=== PATIENT | male | born 1965 | race Two or more races ===

== ENCOUNTER 2024-11-26 11:46 | Inpatient (IN) | payer BC, MEDICAID, OTHER ==
[~2024-11-26] VITALS: Ht 170.2 cm; Wt 103.2 kg
--- NOTE | 2024-11-26 12:27 | ED.PDOC ---
History of Present Illness HPI Comments 59-year-old male presents with a chief complaint of abdominal pain and flank pain. Patient states that he self catheterizes and is frequently acquiring UTIs. Patient mentions that his pain is localized to his left flank, radiating to his LUQ, and rates his pain a 5/10 a this time. Patient also reports that he started to have nausea and vomiting episodes. Chief Complaint: Abdominal Pain Time Seen by MD: 11:59 Reviewed Notes: Medications, Allergies Allergies: Coded Allergies: NO KNOWN ALLERGIES (Unverified , 11/26/24) Information Source: Patient Mode of Arrival: Ambulatory Severity: Moderate Timing: Days Duration: Since onset Prehospital treatment: None Past Medical History PAST MEDICAL HISTORY: DM, HTN Surgical History: Appendectomy Family History Family History: Reviewed,noncontributory to illness Social History Smoker: Non-Smoker Alcohol: Denies ETOH Use Drugs: Denies Drug Use Lives In: Home Constitutional: denies: chills, diaphoresis, fatigue, fever, malaise, sweats, weakness, others EENTM: denies: blurred vision, double vision, ear bleeding, ear discharge, ear drainage, ear pain, ear ringing, eye pain, eye redness, hearing loss, mouth pain, mouth swelling, nasal discharge, nose bleeding, nose congestion, nose pain, photophobia, tearing, throat pain, throat swelling, voice changes, others Respiratory: denies: cough, hemoptysis, orthopnea, SOB at rest, shortness of breath, SOB with excertion, stridor, wheezing, others Cardiovascular: denies: chest pain, dizzy spells, diaphoresis, Dyspnea on exertion, edema, irregular heart beat, left arm pain, lightheadedness, palpitat ions, PND, syncope, others Gastrointestinal: reports: abdominal pain, nausea, vomiting; denies: abdomen distended, blood streaked bowels, constipated, diarrhea, dysphagia, difficulty swallowing, hematemesis, melena, poor appetite, poor fluid intake, rectal bleeding, rectal pain, others Genitourinary: reports: flank pain; denies: burning, dysuria, frequency, hematuria, incontinence, penile discharge, penile sore, pain, testicle pain, testicle swelling, urgency, others Neurological: denies: dizziness, fainting, headache, left sided numbness, left sided weakness, numbness, paresthesia, pre-existing deficit, right sided numbness, right sided weakness, seizure, speech problems, tingling, tremors, weakness, others Musculoskeletal: denies: back pain, gout, joint pain, joint swelling, muscle pain, muscle stiffness, neck pain, others Integumetry: denies: bruises, change in color, change in hair/nails, dryness, laceration, lesions, lumps, rash, wounds, others Allergic/Immunocompromised: denies: Difficulty Healing, Frequent Infections, Hives, Itching, others Hematologic/Lymphatic: denies: anemia, blood clots, easy bleeding, easy bruising, swollen glands, others Endocrine: denies: excessive hunger, excessive sweating, excessive thirst, excessive urination, flushing, intolerance to cold, intolerance to heat, unexplained weight gain, unexplained weight loss, others Psychiatric: denies: anxiety, bipolar disorder, depression, hopeless, panic disorder, schizophrenia, sleepless, suicidal, others All Other Systems: Reviewed and Negative Physical Exam General Appearance: Moderate Distress, Normal HEENT: Normal ENT Inspection, Pharynx Normal, TMs Normal Neck: Full Range of Motion, Non-Tender, Normal, Normal Inspection Respiratory: Chest Non-Tender, Lungs Clear, No Accessory Muscle Use, No Respiratory Distress, Normal Breath Sounds Cardiovascular: No Edema, No JVD, No Murmur, No Gallop, Normal Peripheral Pulses, Regular Rate/Rhythm Breast Exam: Deferred Gastrointestinal: Diffuse, No Organomegaly, No Pulsatile Mass, Normal Bowel Sounds, Soft Genitalia: Deferred Pelvic: Deferred Rectal: Deferred Extremities: No calf tenderness, Normal capillary refill, Normal inspection, Normal range of motion, Non-tender, No pedal edema Musculoskeletal : Apperance: Normal Neurologic: Alert, liquified natural gas specialist II-XII nml as Tested, No Motor Deficits, Normal Affect, Normal Mood, No Sensory Deficits Cerebellar Function: Normal Reflexes: Normal Skin: Dry, Normal Color, Warm Peripheral Pulses: 3+ Radial (R), 3+ Radial (L) Lymphatic: No Adenopathy Was a procedure done? Was a procedure done?: No Differential Dx Considerations may include: Colitis Electrolyte imbalance X-Ray, Labs, Meds, VS Vital Signs Date Time Temp Pulse Resp B/P (MAP) Pulse Ox O2 Delivery O2 Flow Rate FiO2 11/26/24 11:55 99.6 106 12 152/94 (113) 96 99.6 Lab Test 11/26/24 12:09 Range/Units Urine Color Pending Urine Clarity Pending Urine pH Pending Urine Specific [place] Pending Urine Protein Pending Urine Ketones Pending Urine Blood Pending Urine Nitrite Pending Urine Bilirubin Pending Urine Urobilinogen Pending Urine Leukocyte Esterase Pending Urine RBC Pending Urine Microscopic WBC Pending Urine Squamous Epithelial Cells Pending Urine Bacteria Pending Urine Glucose Pending Patient alert. Complaining of abdominal pain. Possible colitis pain Vitals stable. Answering questions. Mild fever. Possible pyelonephritis. Establish intravenous access. Was given fluids. Was given Zosyn. Was given Flagyl. Explained to the patient. Continue monitoring. Time of 1ST Reevaluation: 12:29 Reevaluation 1ST: Unchanged Patient Education/Counseling: Diagnosis, Treatment, Prognosis Family Education/Counseling: No Family Present SEPSIS Sepsis Screen Date sepsis recognized/suspect: Nov 26, 2024 Time Sepsis recognized/suspect: 1154 Recent Procedure: No On Antibiotic Therapy: No Respiratory Rate >20: No Heart Rate >90: No Temp<36 C (96.8 F) or >38.3 C: No SBP <90 or MAP <65 mmHG: No New Acute Mental Status Change: No Is the patient on CPAP, BIPAP,: No Physician Orders Complete Blood Count (11/26/24 12:22) Urinalysis (11/26/24 12:22) Basic Metabolic Panel (11/26/24 12:22) Vital Signs Date Time Temp Pulse Resp B/P (MAP) Pulse Ox O2 Delivery O2 Flow Rate FiO2 11/26/24 11:55 99.6 106 12 152/94 (113) 96 99.6 Departure 1 Departure Time of Disposition: 12:33 Impression: Primary Impression: Acute abdominal pain Additional Impression: Non-specific colitis Disposition: ADMITTED INPATIENT Admit to: Med Surg Condition: Guarded Critical Care Note Critical Care Time?: No Stability Stability form required: No Heart Score Heart Score: Heart Score Response (Comments) Value History N/A 0 EKG N/A 0 Age N/A 0 Risk Factors N/A 0 Troponin N/A 0 Total 0 I personally scribed for IZZY ESPINO MD ([email or web address]) on 11/26/24 at 12:27. Electronically submitted by Trell Mcguire ([email or web address]). IZZY ESPINO MD Nov 26, 2024 12:27
[2024-11-26 12:41] LABS: Urine Protein, UAD 1+ (Negative); Urine WBC Clumps PRESENT /hpf (None Seen)
[2024-11-26 12:49] LABS: Chloride 100 mmol/L (98-107); Hematocrit 48.9 % (41.0-53.0); Hemoglobin 16.5 g/dL (13.5-17.5); Mean Corpuscular Hemoglobin 30.4 pg (28.0-32.0); Mean Corpuscular Volume 90.1 fL (80.0-100.0); Nucleated Red Blood Cells % 0.0 %; Potassium 4.7 mmol/L (3.5-5.1); Sodium 138 mmol/L (136-145)
[2024-11-26 12:50] LABS: Anion Gap 10 (5-15); Carbon Dioxide 28 mmol/L (20-31)
[2024-11-26 12:51] LABS: Calcium 9.5 mg/dL (8.7-10.4)
[2024-11-26 12:55] LABS: BUN/Creatinine Ratio 15.0 (10.0-20.0); Blood Urea Nitrogen 16 mg/dL (9-23)
[2024-11-26 13:00] LABS: Glucose 314 mg/dL (74-106)
[2024-11-26 13:20] VITALS: PULSE 114; RESP 16; O2SAT 97
[2024-11-26] MEDS: PIPERACILLIN-TAZOB 3.375GM 100 ML IV ONE (13:39)
[2024-11-26] MEDS: ONDANSETRON HCL 4 MG/2 ML VIAL IV ONE (13:39)
[2024-11-26] MEDS: MORPHINE SULFATE INJ 2 MG/ml SYRG IV ONE (13:40)
[2024-11-26] MEDS: SODIUM CHLORIDE 0.9% 1,000 ML IV ONE ×2 (13:41→14:00)
--- NOTE | 2024-11-26 19:02 | DVHHP2 ---
Admitting Diagnosis: Abdominal pain History of Present Illness 59-year-old male presents with a chief complaint of abdominal pain and flank pain. Patient states that he self catheterizes and is frequently acquiring UTIs. Patient mentions that his pain is localized to his left flank, radiating to his LUQ, and rates his pain a 5/10 a this time. Patient also reports that he started to have nausea and vomiting episodes. PAST MEDICAL HISTORY: DM, HTN Surgical History: Appendectomy Family History Family History: Reviewed,noncontributory to illness Social History Smoker: Non-Smoker Alcohol: Denies ETOH Use Drugs: Denies Drug Use Lives In: Home Allergies: Coded Allergies: NO KNOWN ALLERGIES (Unverified , 11/26/24) Vital Signs Vital Signs Date Time Temp Pulse Resp B/P (MAP) Pulse Ox O2 Delivery O2 Flow Rate FiO2 11/26/24 16:00 102 16 162/87 (112) 100 11/26/24 13:33 98.3 98.3 11/26/24 13:20 Room Air* 0 21 Physical Exam General-59 years old male, well nourished well developed. Mild distress HEENT-atraumatic normocephalic Heart-regular rate and rhythm Lungs clear to auscultate bilaterally Soft nontender nondistended nondistended Musculoskeletal-no edema cyanosis Neuro AO x3, no focal deficits Results Labs Test 11/26/24 13:18 11/26/24 12:34 11/26/24 12:09 Range/Units POC Glucose 280 H 70-106 mg/dl White Blood Count 9.7 4.4-10.8 10^3/uL Red Blood Count 5.42 4.5-5.90 10^6/uL Hemoglobin 16.5 13.5-17.5 g/dL Hematocrit 48.9 41.0-53.0 % Mean Corpuscular Volume 90.1 80.0-100.0 fL Mean Corpuscular Hemoglobin 30.4 28.0-32.0 pg Mean Corpuscular Hemoglobin Concent 33.7 32.0-36.0 g/dL Red Cell Distribution Width 13.6 11.8-14.3 % Platelet Count 251 140-450 10^3/uL Mean Platelet Volume 9.3 6.9-10.8 fL Neutrophils (%) (Auto) 79.4 37.0-80.0 % Lymphocytes (%) (Auto) 12.7 10.0-50.0 % Monocytes (%) (Auto) 7.2 0.0-12.0 % Eosinophils (%) (Auto) 0.1 0.0-7.0 % Basophils (%) (Auto) 0.6 0.0-2.0 % Neutrophils # (Auto) 7.7 1.6-8.6 10 ^3/uL Lymphocytes # (Auto) 1.2 0.4-5.4 10 ^3/uL Monocytes # (Auto) 0.7 0-1.3 10 ^3/uL Eosinophils # (Auto) 0 0-0.8 10 ^3/uL Basophils # (Auto) 0.1 0-0.2 10 ^3/uL Nucleated Red Blood Cells 0.0 % Sodium Level 138 136-145 mmol/L Potassium Level 4.7 3.5-5.1 mmol/L Chloride Level 100 98-107 mmol/L Carbon Dioxide Level 28 20-31 mmol/L Anion Gap 10 5-15 Blood Urea Nitrogen 16 9-23 mg/dL Creatinine 1.07 0.700-1.30 mg/dL Glomerular Filtration Rate Calc 80 >90 mL/min BUN/Creatinine Ratio 15.0 10.0-20.0 Serum Glucose 314 H 74-106 mg/dL Calcium Level 9.5 8.7-10.4 mg/dL Urine Color Light-orange Yellow Urine Clarity Turbid H Clear Urine pH 5.5 5.0-9.0 Urine Specific [place] 1.024 1.001-1.035 Urine Protein 1+ H Negative Urine Ketones 2+ H Negative Urine Blood 2+ H Negative /uL Urine Nitrite 1+ H Negative Urine Bilirubin Negative Negative Urine Urobilinogen Normal Negative mg/dL Urine Leukocyte Esterase 3+ Negative /uL Urine RBC 30 0 - 3 /hpf Urine WBC Clumps Present None Seen /hpf Urine Microscopic WBC 482 H 0-3 /HPF Urine Squamous Epithelial Cells None seen <5 /hpf Urine Bacteria Many H None Seen /hpf Urine Mucus Few None Seen Urine Glucose 4+ H Normal mg/dL Primary Diagnosis Acute urinary tract infection Plan +UA. asked for ct to r/o renal stones, pyelo, intra-abdominal infection. pt refused ct scan and requests to be treated for uti. Ceftriaxone 1 g q.day Follow up urine culture IV fluids Pain control Resume home meds Full code Lovenox for DVT prophylaxis No GI prophylaxis needed Plan discussed with: Patient Problems List: (1) Urinary tract infection (2) Acute abdominal pain Status: Acute Date of Service: Nov 26, 2024 Billing Provider: SHANTA RDZ MD Common Visit Codes: [id number] INP/OBS CARE (MOD) SHANTA RDZ MD Nov 26, 2024 19:02
[2024-11-26] MEDS ORDERED: DEXTROSE (50%) 50ML SYRG IV PRN (19:15)
[2024-11-26] MEDS ORDERED: ONDANSETRON HCL 4 MG/2 ML VIAL IV PRN (19:15)
[2024-11-26] MEDS ORDERED: DOCUSATE SOD 100 MG CAP PO PRN (19:15)
[2024-11-26] MEDS ORDERED: hydrALAZINE HCL 20 MG/ML VL IV PRN (19:15)
[2024-11-26] MEDS: LACTATED RINGER'S 1,000 ML IV ONE (20:43)
[2024-11-26] MEDS: ACETAMINOPHEN 325 MG TAB PO PRN (21:06)
[2024-11-26 21:35] VITALS: PULSE 111; RESP 23; O2SAT 95
[2024-11-26] MEDS: SODIUM CHLOR 0.9% PF (SALINE LOCK) 10ML VIAL/SYR IV SCH (21:46)
[2024-11-26] MEDS: ACCU-CHEK COMFORT CURVE STRIP VI SCH (21:46)
[2024-11-26] MEDS: InsuLIN REG 1unit/0.01ml Soln (100units/ml) SC SCH (21:49)
[2024-11-27 01:00] VITALS: BP 127/78; PULSE 101; RESP 21; TEMP 99.9; O2SAT 95
[2024-11-27] MEDS ORDERED: AML5T GT (02:22)
[2024-11-27] MEDS ORDERED: INSLANTI SC (02:22)
[2024-11-27] MEDS ORDERED: FLUO-125 PO (02:24)
[2024-11-27] MEDS ORDERED: LOSA-535 PO (02:25)
[2024-11-27] MEDS ORDERED: METO-158 PO (02:26)
[2024-11-27] MEDS ORDERED: ROSU20TA14 PO (02:27)
[2024-11-27 05:00] VITALS: BP 153/97; PULSE 101; RESP 21; TEMP 98.4; O2SAT 94
[2024-11-27 08:27] LABS: Hematocrit 45.0 % (41.0-53.0); Hemoglobin 15.2 g/dL (13.5-17.5); Mean Corpuscular Hemoglobin 30.2 pg (28.0-32.0); Mean Corpuscular Volume 89.5 fL (80.0-100.0); Nucleated Red Blood Cells % 0.1 %
[2024-11-27 08:47] LABS: Alanine Aminotransferase 13 U/L (7-40); Alkaline Phosphatase 80 U/L (46-116); Anion Gap 9 (5-15); BUN/Creatinine Ratio 10.4 (10.0-20.0); Blood Urea Nitrogen 10 mg/dL (9-23); Calcium 9.2 mg/dL (8.7-10.4); Carbon Dioxide 27 mmol/L (20-31); Chloride 101 mmol/L (98-107); Sodium 137 mmol/L (136-145); Total Protein 7.2 g/dL (5.7-8.2)
[2024-11-27 08:48] LABS: Albumin 4.2 g/dL (3.2-4.8); Bilirubin, Total 0.5 mg/dL (0.2-1.0)
[2024-11-27 08:50] LABS: Glucose 254 mg/dL (74-106); Potassium 3.5 mmol/L (3.5-5.1)
[2024-11-27 09:39] VITALS: BP 143/89; PULSE 108; RESP 17; TEMP 101; O2SAT 93
[2024-11-27] MEDS: ENOXAPARIN SOD 40 MG/0.4 ML SYRINGE SC SCH (10:00)
[2024-11-27] MEDS: cefTRIAXone 1GM/50ML D5W 50 ML IV SCH (10:43)
--- NOTE | 2024-11-27 10:54 | DVHPN2 ---
Reviewed: Care Plan, H&P, Labs, Medications, Previous Orders, Radiology Changes from previous H/P or p: No Changes General: Per HPI Objective Vitals Vital Signs Date Time Temp Pulse Resp B/P (MAP) Pulse Ox O2 Delivery O2 Flow Rate FiO2 11/27/24 09:39 101.0 108 17 143/89 (107) 93 101.0 11/27/24 01:10 Room Air* 0 21 Intake/Output Intake and Output 11/27/24 07:00 Intake Total 1650 ml Balance 1650 ml Intake Oral 0 ml IV Total 1650 ml Medications Current Medications Medications Dose Ordered Sig/Sherrie Route Start Time Stop Time Status Last Admin Dose Admin Ceftriaxone Sodium 50 ml @ 100 mls/hr DAILY IV 11/27/24 10:00 Sodium Chloride 10 ml Q8HR IV 11/26/24 22:00 11/27/24 06:23 10 ML Docusate Sodium 100 mg BIDPRN PRN PO 11/26/24 19:15 Acetaminophen 650 mg Q6HP PRN PO 11/26/24 19:15 11/27/24 07:59 650 MG Acetaminophen/ Hydrocodone Bitart 1 tab Q4HP PRN PO 11/26/24 19:15 Ondansetron HCl 4 mg Q4HP PRN IV 11/26/24 19:15 Enoxaparin Sodium 40 mg DAILY SC 11/27/24 10:00 Diagnostic Test (Pha) 1 strip ACHS 11/26/24 22:00 11/27/24 06:30 1 STRIP Insulin Human Regular ACHS SC 11/26/24 22:00 11/27/24 06:30 6 UNITS Dextrose 50 ml UD PRN IV 11/26/24 19:15 Hydralazine HCl 10 mg Q6HP PRN IV 11/26/24 19:15 Laboratory Results Laboratory Tests 11/27/24 08:06 Chemistry Test 11/26/24 12:34 11/27/24 08:06 Calcium Level 9.5 mg/dL (8.7-10.4) 9.2 mg/dL (8.7-10.4) Albumin 4.2 g/dL (3.2-4.8) Total Protein 7.2 g/dL (5.7-8.2) LFT Test 11/27/24 08:06 Alanine Aminotransferase (ALT) 13 U/L (7-40) Alkaline Phosphatase 80 U/L (46-116) Aspartate Amino Transferase (AST) 17 U/L (13-40) Total Bilirubin 0.5 mg/dL (0.2-1.0) Urinalysis Test 11/26/24 12:09 Urine Color Light-orange (Yellow) Urine Clarity Turbid (Clear) H Urine pH 5.5 (5.0-9.0) Urine Specific [place] 1.024 (1.001-1.035) Urine Protein 1+ (Negative) H Urine Ketones 2+ (Negative) H Urine Blood 2+ /uL (Negative) H Urine Nitrite 1+ (Negative) H Urine Bilirubin Negative (Negative) Urine Urobilinogen Normal mg/dL (Negative) Urine Leukocyte Esterase 3+ /uL (Negative) Urine RBC 30 /hpf (0 - 3) Urine WBC Clumps Present /hpf (None Seen) Urine Microscopic WBC 482 /HPF (0-3) H Urine Squamous Epithelial Cells None seen /hpf (<5) Urine Bacteria Many /hpf (None Seen) H Urine Mucus Few (None Seen) Urine Glucose 4+ mg/dL (Normal) H Microbiology Microbiology Date/Time Source Procedure Growth Status 11/26/24 12:09 Voided Urine Urine Culture - Preliminary Resulted Labs and/or images reviewed: Labs reviewed by me, Image(s) reviewed by me Assessment/Plan Assessment/Plan 59-year-old male presents with a chief complaint of abdominal pain and flank pain. Patient states that he self catheterizes and is frequently acquiring UTIs. Patient mentions that his pain is localized to his left flank, radiating to his LUQ, and rates his pain a 5/10 a this time. Patient also reports that he started to have nausea and vomiting episodes. PAST MEDICAL HISTORY: DM, HTN Surgical History: Appendectomy Family History Family History: Reviewed,noncontributory to illness Social History Smoker: Non-Smoker Alcohol: Denies ETOH Use Drugs: Denies Drug Use Lives In: Home Acute urinary tract infection Acute abdominal pain 11/27/2024: Continue with IV antibiotics. This is complicated UTI. Awaiting for urine culture and sensitivity. Change diet to diabetic diet and adding insulin scale Plan discussed with: Patient Date of Service: Nov 27, 2024 Billing Provider: CARL FLOYD DO Common Visit Codes: [id number] INP/OBS CARE(HIGH) CARL FLOYD DO Nov 27, 2024 10:54
[2024-11-27 13:00] VITALS: BP 123/78; PULSE 94; RESP 17; TEMP 98; O2SAT 93
[2024-11-27] MEDS ORDERED: DEXTROSE (50%) 50ML SYRG IV PRN (13:15)
[2024-11-27 16:40] VITALS: BP 135/90; PULSE 101; RESP 17; TEMP 100.5; O2SAT 94
[2024-11-27] MEDS: InsuLIN REG 1unit/0.01ml Soln (100units/ml) SC SCH (17:27)
[2024-11-27] MEDS: ACCU-CHEK COMFORT CURVE STRIP VI SCH (17:28)
[2024-11-27] MEDS: HYDROcodone-ACET 5/325MG TAB PO PRN (20:46)
[2024-11-27 21:00] VITALS: BP 128/75; PULSE 96; RESP 20; TEMP 99.7; O2SAT 93
[2024-11-28] VITALS (7 sets, daily range): BP systolic 126–151; BP diastolic 77–94; PULSE 80–94; RESP 14–19; TEMP 97.6–99.4; O2SAT 94–96
[2024-11-28 06:57] LABS: Alanine Aminotransferase 15 U/L (7-40); Albumin 4.0 g/dL (3.2-4.8); Alkaline Phosphatase 82 U/L (46-116); Anion Gap 10 (5-15); BUN/Creatinine Ratio 13.6 (10.0-20.0); Bilirubin, Total 0.3 mg/dL (0.2-1.0); Blood Urea Nitrogen 12 mg/dL (9-23); Calcium 8.5 mg/dL (8.7-10.4); Carbon Dioxide 26 mmol/L (20-31); Chloride 100 mmol/L (98-107); Glucose 225 mg/dL (74-106); Potassium 3.5 mmol/L (3.5-5.1); Sodium 136 mmol/L (136-145); Total Protein 7.1 g/dL (5.7-8.2)
[2024-11-28 06:59] LABS: Hematocrit 43.8 % (41.0-53.0); Hemoglobin 14.9 g/dL (13.5-17.5); Mean Corpuscular Hemoglobin 30.5 pg (28.0-32.0); Mean Corpuscular Volume 89.5 fL (80.0-100.0); Nucleated Red Blood Cells % 0.1 %
--- NOTE | 2024-11-28 13:16 | DVHPN2 ---
Reviewed: Care Plan, H&P, Labs, Medications, Previous Orders, Radiology Changes from previous H/P or p: No Changes General: Per HPI Objective Vitals Vital Signs Date Time Temp Pulse Resp B/P (MAP) Pulse Ox O2 Delivery O2 Flow Rate FiO2 11/28/24 12:45 98.1 87 16 126/78 (94) 96 98.1 11/28/24 08:00 Room Air* 0 21 Intake/Output Intake and Output 11/28/24 07:00 Intake Total 950 ml Balance 950 ml Intake Oral 900 ml IV Total 50 ml # Voids 4 # Bowel Movements 1 Medications Current Medications Medications Dose Ordered Sig/Sherrie Route Start Time Stop Time Status Last Admin Dose Admin Ceftriaxone Sodium 50 ml @ 100 mls/hr DAILY IV 11/27/24 10:00 11/28/24 10:29 100 MLS/HR Sodium Chloride 10 ml Q8HR IV 11/26/24 22:00 11/28/24 12:35 10 ML Docusate Sodium 100 mg BIDPRN PRN PO 11/26/24 19:15 Acetaminophen 650 mg Q6HP PRN PO 11/26/24 19:15 11/27/24 17:30 650 MG Acetaminophen/ Hydrocodone Bitart 1 tab Q4HP PRN PO 11/26/24 19:15 11/28/24 05:58 1 TAB Ondansetron HCl 4 mg Q4HP PRN IV 11/26/24 19:15 Enoxaparin Sodium 40 mg DAILY SC 11/27/24 10:00 Dextrose 50 ml UD PRN IV 11/26/24 19:15 Cancel Hydralazine HCl 10 mg Q6HP PRN IV 11/26/24 19:15 Diagnostic Test (Pha) 1 strip Q6HR 11/27/24 18:00 11/28/24 12:35 1 STRIP Insulin Human Regular Q6HR SC 11/27/24 18:00 11/28/24 12:35 12 UNITS Dextrose 50 ml UD PRN IV 11/27/24 13:15 Laboratory Results Laboratory Tests 11/28/24 05:40 Chemistry Test 11/28/24 05:40 Albumin 4.0 g/dL (3.2-4.8) Calcium Level 8.5 mg/dL (8.7-10.4) L Total Protein 7.1 g/dL (5.7-8.2) LFT Test 11/28/24 05:40 Alanine Aminotransferase (ALT) 15 U/L (7-40) Alkaline Phosphatase 82 U/L (46-116) Aspartate Amino Transferase (AST) 17 U/L (13-40) Total Bilirubin 0.3 mg/dL (0.2-1.0) Urinalysis Test 11/26/24 12:09 Urine Color Light-orange (Yellow) Urine Clarity Turbid (Clear) H Urine pH 5.5 (5.0-9.0) Urine Specific [place] 1.024 (1.001-1.035) Urine Protein 1+ (Negative) H Urine Ketones 2+ (Negative) H Urine Blood 2+ /uL (Negative) H Urine Nitrite 1+ (Negative) H Urine Bilirubin Negative (Negative) Urine Urobilinogen Normal mg/dL (Negative) Urine Leukocyte Esterase 3+ /uL (Negative) Urine RBC 30 /hpf (0 - 3) Urine WBC Clumps Present /hpf (None Seen) Urine Microscopic WBC 482 /HPF (0-3) H Urine Squamous Epithelial Cells None seen /hpf (<5) Urine Bacteria Many /hpf (None Seen) H Urine Mucus Few (None Seen) Urine Glucose 4+ mg/dL (Normal) H Microbiology Microbiology Date/Time Source Procedure Growth Status 11/26/24 12:09 Voided Urine Urine Culture - Preliminary Resulted Labs and/or images reviewed: Labs reviewed by me, Image(s) reviewed by me Assessment/Plan Assessment/Plan Acute abdominal pain Sepsis Secondary to urinary tract infection Acute urinary tract infection: Urine cultures growing Gram-negative rods continue Rocephin CT abdomen pelvis without contrast pending Plan discussed with: Patient My Orders Orders - SHERRI VELAZCO MD Procedure Category Date Status Time Ct Ab Pel Wo Con-No CT 11/28/24 Logged Oral Or Iv 13:12 Date of Service: Nov 28, 2024 Billing Provider: SHERRI VELAZCO MD Common Visit Codes: [id number] INP/OBS CARE(HIGH) SHERRI VELAZCO MD Nov 28, 2024 13:16
--- NOTE | 2024-11-28 15:02 | DVH ---
Indication: Acute abdominal pain Technique: CT axial images of the abdomen and pelvis are obtained without contrast. Coronal and sagit clare reformats were obtained. Radiation Dose Information: CTDI volume is 18.52 mGy. Dose-length product is 1280.37 mGy*cm Comparison: None FINDINGS: There is limited interpretation of the abdomen and pelvis without administration of intravenous contr ast. Lung bases demonstrate atelectasis. Tiny bilateral pleural effusions. Adrenal glands, spleen, pancreas unremarkable in shape. Hepatic steatosis. No CT evidence for nick lithiasis. Kidneys demonstrate no hydronephrosis, nephrolithiasis. Stomach is partially distended. Small bowel loops are normal in caliber. Moderate to large volume stool in the colon. No secondary signs for appendicitis present. Abdominal aortic atherosclerotic disease. Bladder is partially distended. Left posterolateral bladder diverticulum measuring 4.5 x 3.2 cm. No inguinal lymphadenopathy. Vdxh-an-ldopachs thoracolumbar degenerative disc disease. Abdominal soft tissue skin thickening. IMPRESSION: Moderate to large volume stool within the colon. Tiny bilateral pleural effusions. Left posterolateral bladder diverticulum measuring 4.5 cm. Atherosclerotic disease. Abdominal soft tissue skin thickening. Correlate for cellulitis and other etiologies. Other findings as described
[2024-11-29 05:00] VITALS: BP 141/89; PULSE 79; RESP 18; TEMP 97.6; O2SAT 95
[2024-11-29 06:59] LABS: Alanine Aminotransferase 15 U/L (7-40); Alkaline Phosphatase 79 U/L (46-116); Anion Gap 8 (5-15); BUN/Creatinine Ratio 12.6 (10.0-20.0); Blood Urea Nitrogen 11 mg/dL (9-23); Calcium 8.7 mg/dL (8.7-10.4); Carbon Dioxide 30 mmol/L (20-31); Chloride 99 mmol/L (98-107); Glucose 218 mg/dL (74-106); Potassium 3.6 mmol/L (3.5-5.1); Sodium 137 mmol/L (136-145); Total Protein 6.9 g/dL (5.7-8.2)
[2024-11-29 07:00] LABS: Albumin 3.9 g/dL (3.2-4.8); Bilirubin, Total 0.3 mg/dL (0.2-1.0)
[2024-11-29 07:33] LABS: Hematocrit 43.4 % (41.0-53.0); Hemoglobin 14.8 g/dL (13.5-17.5); Mean Corpuscular Hemoglobin 30.2 pg (28.0-32.0); Mean Corpuscular Volume 88.8 fL (80.0-100.0); Nucleated Red Blood Cells % 0.1 %
[2024-11-29 09:00] VITALS: BP 103/60; PULSE 84; RESP 18; TEMP 97.9; O2SAT 95
--- NOTE | 2024-11-29 10:25 | DVHPN2 ---
Reviewed: Care Plan, H&P, Labs, Medications, Previous Orders, Radiology Changes from previous H/P or p: No Changes General: Per HPI Objective Vitals Vital Signs Date Time Temp Pulse Resp B/P (MAP) Pulse Ox O2 Delivery O2 Flow Rate FiO2 11/29/24 05:00 97.6 79 18 141/89 (106) 95 97.6 11/28/24 20:00 Room Air* 0 21 Intake/Output Intake and Output 11/29/24 07:00 Intake Total 1150 ml Output Total 1 ml Balance 1149 ml Intake Oral 1100 ml IV Total 50 ml Output Stool Total 1 ml # Voids 5 # Bowel Movements 1 Medications Current Medications Medications Dose Ordered Sig/Sherrie Route Start Time Stop Time Status Last Admin Dose Admin Ceftriaxone Sodium 50 ml @ 100 mls/hr DAILY IV 11/27/24 10:00 11/28/24 10:29 100 MLS/HR Sodium Chloride 10 ml Q8HR IV 11/26/24 22:00 11/29/24 05:26 10 ML Docusate Sodium 100 mg BIDPRN PRN PO 11/26/24 19:15 Acetaminophen 650 mg Q6HP PRN PO 11/26/24 19:15 11/27/24 17:30 650 MG Acetaminophen/ Hydrocodone Bitart 1 tab Q4HP PRN PO 11/26/24 19:15 11/28/24 05:58 1 TAB Ondansetron HCl 4 mg Q4HP PRN IV 11/26/24 19:15 Enoxaparin Sodium 40 mg DAILY SC 11/27/24 10:00 Dextrose 50 ml UD PRN IV 11/26/24 19:15 Cancel Hydralazine HCl 10 mg Q6HP PRN IV 11/26/24 19:15 Diagnostic Test (Pha) 1 strip Q6HR 11/27/24 18:00 11/29/24 05:25 1 STRIP Insulin Human Regular Q6HR SC 11/27/24 18:00 11/29/24 05:25 6 UNITS Dextrose 50 ml UD PRN IV 11/27/24 13:15 Laboratory Results Laboratory Tests 11/29/24 05:22 Chemistry Test 11/29/24 05:22 Albumin 3.9 g/dL (3.2-4.8) Calcium Level 8.7 mg/dL (8.7-10.4) Total Protein 6.9 g/dL (5.7-8.2) LFT Test 11/29/24 05:22 Alanine Aminotransferase (ALT) 15 U/L (7-40) Alkaline Phosphatase 79 U/L (46-116) Aspartate Amino Transferase (AST) 15 U/L (13-40) Total Bilirubin 0.3 mg/dL (0.2-1.0) Urinalysis Test 11/26/24 12:09 Urine Color Light-orange (Yellow) Urine Clarity Turbid (Clear) H Urine pH 5.5 (5.0-9.0) Urine Specific [place] 1.024 (1.001-1.035) Urine Protein 1+ (Negative) H Urine Ketones 2+ (Negative) H Urine Blood 2+ /uL (Negative) H Urine Nitrite 1+ (Negative) H Urine Bilirubin Negative (Negative) Urine Urobilinogen Normal mg/dL (Negative) Urine Leukocyte Esterase 3+ /uL (Negative) Urine RBC 30 /hpf (0 - 3) Urine WBC Clumps Present /hpf (None Seen) Urine Microscopic WBC 482 /HPF (0-3) H Urine Squamous Epithelial Cells None seen /hpf (<5) Urine Bacteria Many /hpf (None Seen) H Urine Mucus Few (None Seen) Urine Glucose 4+ mg/dL (Normal) H Microbiology Microbiology Date/Time Source Procedure Growth Status 11/26/24 12:09 Voided Urine Urine Culture - Final Escherichia coli Complete Labs and/or images reviewed: Labs reviewed by me, Image(s) reviewed by me Assessment/Plan Assessment/Plan Acute abdominal pain Sepsis Secondary to urinary tract infection Acute urinary tract infection: Urine cultures growing E coli sensitive to Rocephin Cipro and levaquin CT abdomen pelvis without contrast negative for any acute pathology Patient feels better and wants to go home to fly back to [place] Plan discussed with: Patient My Orders Orders - SHERRI VELAZCO MD Procedure Category Date Status Time Ct Ab Pel Wo Con-No CT 11/28/24 Resulted Oral Or Iv 13:12 Date of Service: Nov 29, 2024 Billing Provider: SHERRI VELAZCO MD Common Visit Codes: [id number] INP/OBS CARE(HIGH) SHERRI VELAZCO MD Nov 29, 2024 10:25
[2024-11-29] MEDS ORDERED: LEVO500T91 PO (10:26)
--- NOTE | 2024-11-29 10:29 | DVHDS2 ---
Discharge Summary Date of Admission Nov 26, 2024 at 19:02 Date of Discharge: Nov 29, 2024 Admitting Diagnosis Abdominal pain Wounds: None Labs/Diagnostic Data: Laboratory Results Test 11/29/24 05:22 11/29/24 05:04 11/26/24 19:25 11/26/24 12:09 White Blood Count 7.0 10^3/uL (4.4-10.8) Red Blood Count 4.89 10^6/uL (4.5-5.90) Hemoglobin 14.8 g/dL (13.5-17.5) Hematocrit 43.4 % (41.0-53.0) Mean Corpuscular Volume 88.8 fL (80.0-100.0) Mean Corpuscular Hemoglobin 30.2 pg (28.0-32.0) Mean Corpuscular Hemoglobin Concent 34.0 g/dL (32.0-36.0) Red Cell Distribution Width 13.1 % (11.8-14.3) Platelet Count 218 10^3/uL (140-450) Mean Platelet Volume 9.8 fL (6.9-10.8) Neutrophils (%) (Auto) 57.8 % (37.0-80.0) Lymphocytes (%) (Auto) 25.0 % (10.0-50.0) Monocytes (%) (Auto) 14.2 % (0.0-12.0) Eosinophils (%) (Auto) 2.6 % (0.0-7.0) Basophils (%) (Auto) 0.4 % (0.0-2.0) Neutrophils # (Auto) 4.1 10 ^3/uL (1.6-8.6) Lymphocytes # (Auto) 1.8 10 ^3/uL (0.4-5.4) Monocytes # (Auto) 1.0 10 ^3/uL (0-1.3) Eosinophils # (Auto) 0.2 10 ^3/uL (0-0.8) Basophils # (Auto) 0 10 ^3/uL (0-0.2) Nucleated Red Blood Cells 0.1 % Sodium Level 137 mmol/L (136-145) Potassium Level 3.6 mmol/L (3.5-5.1) Chloride Level 99 mmol/L (98-107) Carbon Dioxide Level 30 mmol/L (20-31) Anion Gap 8 (5-15) Blood Urea Nitrogen 11 mg/dL (9-23) Creatinine 0.87 mg/dL (0.700-1.30) Glomerular Filtration Rate Calc 100 mL/min (>90) BUN/Creatinine Ratio 12.6 (10.0-20.0) Serum Glucose 218 mg/dL (74-106) Calcium Level 8.7 mg/dL (8.7-10.4) Total Bilirubin 0.3 mg/dL (0.2-1.0) Aspartate Amino Transferase (AST) 15 U/L (13-40) Alanine Aminotransferase (ALT) 15 U/L (7-40) Alkaline Phosphatase 79 U/L (46-116) Total Protein 6.9 g/dL (5.7-8.2) Albumin 3.9 g/dL (3.2-4.8) POC Glucose 237 mg/dl (70-106) Lactic Acid Level 2.0 mmol/L (0.4-2.0) Urine Color Light-orange (Yellow) Urine Clarity Turbid (Clear) Urine pH 5.5 (5.0-9.0) Urine Specific [place] 1.024 (1.001-1.035) Urine Protein 1+ (Negative) Urine Ketones 2+ (Negative) Urine Blood 2+ /uL (Negative) Urine Nitrite 1+ (Negative) Urine Bilirubin Negative (Negative) Urine Urobilinogen Normal mg/dL (Negative) Urine Leukocyte Esterase 3+ /uL (Negative) Urine RBC 30 /hpf (0 - 3) Urine WBC Clumps Present /hpf (None Seen) Urine Microscopic WBC 482 /HPF (0-3) Urine Squamous Epithelial Cells None seen /hpf (<5) Urine Bacteria Many /hpf (None Seen) Urine Mucus Few (None Seen) Urine Glucose 4+ mg/dL (Normal) Other Laboratory Tests 11/29/24 05:22 Brief Hx & Hospital Course: 59-year-old male came in for abdominal pain found to have sepsis secondary to urinary tract infection treated with Rocephin urine cultures grew E coli sensitive to Rocephin Cipro and Levaquin. CT abdomen pelvis without contrast negative for any acute pathology. Patient feels better and wants to go home to fly back to [place]. Consults/Reason for consult None Operations or Procedures CT abdomen pelvis without contrast Condition at Discharge: Fair Final Diagnosis/Problems List Acute abdominal pain Sepsis Secondary to urinary tract infection Acute urinary tract infection: Urine cultures growing E coli sensitive to Rocephin Cipro and levaquin CT abdomen pelvis without contrast negative for any acute patholog Discharge Disposition: Home Discharge Instruct/Medications Diet: Regular Activity: No Restrictions, As Tolerated Follow Up/Referral: Follow up with the primary Dr Medications: [facility]quin [facility]uled Fluoxetine Hcl (Fluoxetine Hcl), 20 MG PO DAILY, (Reported) Levofloxacin Hemihydrate (Levaquin 500 Mg), 1 TAB PO DAILY Losartan Potassium (Losartan Potassium), 1 TAB PO DAILY, (Reported) Rosuvastatin Calcium (Crestor), 1 TAB PO DAILY, (Reported) Miscellaneous Medications Amlodipine Besylate (Norvasc Tablet), 10 MG GT, (Reported) Insulin Glargine (Lantus), 40 UNIT SC, (Reported) Metoprolol Tartrate (Metoprolol Tartrate), 50 MG PO, (Reported) 39 (Time Taken for discharge summary 39 minutes) Discharge Statement: "Patient was advised to return to the ER or call 911 if any headaches, dizziness, shortness of breath, chest pain, abdominal pain, bleeding, fevers, or worsening of medical condition. Patient was counseled about treatment plan, medications, possible side effects, patientverbalized understanding. All questions were answered to the best of my ability. This discharge took greater then 30 minutes in planning, reviewing documentation, counseling the patient, and discussing with other team members." ASSESSMENT ASSESSMENT Hospital Course Improved Assessment Acute abdominal pain Sepsis Secondary to urinary tract infection Acute urinary tract infection: Urine cultures growing E coli sensitive to Rocephin Cipro and levaquin CT abdomen pelvis without contrast negative for any acute patholog Date of Service: Nov 29, 2024 Billing Provider: SHERRI VELAZCO MD Common Visit Codes: 41468-TFM/OBS DISCH DAY >30min SHERRI VELAZCO MD Nov 29, 2024 10:29
[2024-11-29 11:27] VITALS: BP 141/89; PULSE 79; RESP 18; TEMP 36.4; O2SAT 95
== END 2024-11-29 12:08 | disposition home or self-care (01) | DRG 720 ==
LOC: ER 11:46 → OVERFLOW 19:02 → EAST 22:55
PROVIDERS: ADMIT Family Medicine; ATTEND Family Medicine
DX: A41.51 Sepsis due to Escherichia coli [E. coli] (principal); E11.9 Type 2 diabetes mellitus without complications; I10 Essential (primary) hypertension; N39.0 Urinary tract infection, site not specified; K52.9 Noninfective gastroenteritis and colitis, unspecified; Z90.49 Acquired absence of other specified parts of digestive tract; Z53.20 Procedure and treatment not carried out because of patient's decision for unspecified reasons; K56.41 Fecal impaction
CPT/HCPCS: 36415; 74176; 80048; 80053; 81001; 82962; 83605; 85025; 87086; 87088; 87186; 96365; 96366; G0378; J1815; J2405; J2543; J3490